=== PATIENT | male | born 1995 | race Caucasian/White ===

== ENCOUNTER 2018-10-02 05:40 | Emergency (ER) | payer BC ==
[~2018-10-02] VITALS: Ht 182.9 cm; Wt 90.7 kg
[2018-10-02] MEDS ORDERED: MELOXICAM (05:50)
[2018-10-02] MEDS ORDERED: PREDNISONE50 MG PO (06:40)
[2018-10-02 07:00] VITALS: BP 115/88
== END 2018-10-02 07:00 | disposition home or self-care (01) ==
LOC: M.ERS 05:40
DX: T78.1XXA Other adverse food reactions, not elsewhere classified, initial encounter (principal); L53.9 Erythematous condition, unspecified; X58.XXXA Exposure to other specified factors, initial encounter